=== PATIENT | male | born 1945 | race Caucasian/White ===

== ENCOUNTER 2019-04-07 09:57 | Inpatient (IN) | payer OTHER ==
[~2019-04-07] VITALS: Ht 157.5 cm; Wt 94.8 kg
[2019-04-07 10:07] VITALS: BP 170/87
[2019-04-07 10:17] LABS: URINE BILIRUBIN NEGATIVE (Negative); URINE BLOOD NEGATIVE (Negative); URINE CLARITY CLEAR; URINE COLOR YELLOW; URINE GLUCOSE-RANDOM NEGATIVE (Negative); URINE KETONES NEGATIVE (Negative); URINE LEUKOCYTES-REFLEX NEGATIVE (Negative); URINE NITRITE-REFLEX NEGATIVE (Negative); URINE PROTEIN 1+ (Negative); URINE SPECIFIC GRAVITY 1.025 (1.005-1.030); URINE UROBILINOGEN 0.2 E.U./dl (0.2-1.0)
[2019-04-07 10:23] LABS: ABSOLUTE BASOPHILS 0.1 thou/uL (0.0-0.2); ABSOLUTE EOSINOPHILS 0.5 thou/uL (0.0-0.7); ABSOLUTE LYMPHOCYTES 2.1 thou/uL (0.8-5.3); ABSOLUTE MONOCYTES 0.6 thou/uL (0.0-1.2); ABSOLUTE NEUTROPHILS 4.3 thou/uL (1.6-8.1); BASOPHILS 0.9 %; EOSINOPHILS 6.8 %; HEMOGLOBIN 14.9 gm/dL (14.0-18.0); LYMPHOCYTES 27.8 %; MCH 30.1 pg (26.0-34.0); MCHC 33.8 g/dL (28.0-37.0); MCV 89.1 fL (80.0-100.0); MONOCYTES 7.4 %; NUCLEATED RBCS 0 /100WBC; PLATELET COUNT* 221 thou/uL (150-400); POLYS 57.1 %; RBC 4.93 mil/uL (4.50-6.00); RDW-CV 14.9 % (10.5-14.5); WBC 7.6 thou/uL (4.0-11.0)
[2019-04-07 10:24] LABS: AMP/METHAMP Negative (Negative); BARBITURATES Negative (Negative); BENZODIAZEPINES Negative (Negative); COCAINE Negative (Negative); METHADONE Negative (Negative); OPIATES Negative (Negative); PCP Negative (Negative); THC Negative (Negative)
[2019-04-07 10:34] LABS: ANION GAP 10 mmol/L (7-16); BUN 14 mg/dL (7-18); CALCIUM 9.3 mg/dL (8.5-10.1); CHLORIDE 100 mmol/L (98-107); CO2 28 mmol/L (21-32); GLUCOSE 130 mg/dL (70-99); POTASSIUM 3.7 mmol/L (3.5-5.1); SODIUM 138 mmol/L (136-145)
[2019-04-07 10:35] LABS: APTT 25.9 Seconds (25.0-31.3); INR 1.2; PROTIME 12.6 Seconds (9.20-11.50)
--- NOTE | 2019-04-07 10:35 | NUR ---
PT IS FROM OUT OF [facility], [facility] PT STATES HE IS WORKING ON GETTING A LIST OF HIS HOME MEDICATIONS FOR OUR RECORDS AT THIS TIME.
[2019-04-07] MEDS ORDERED: CALCIUM 600 +1 EAC1 PO (10:38)
[2019-04-07] MEDS ORDERED: METHADONE HCL 110 M1 PO (10:38)
[2019-04-07] MEDS ORDERED: AMITRIPTYLINE H25 M2 PO (10:38)
[2019-04-07] MEDS ORDERED: COZAAR 25 MG TA25 M1 PO (10:38)
[2019-04-07] MEDS ORDERED: ROSUVASTATIN CA10 MG PO (10:39)
[2019-04-07] MEDS ORDERED: METFORMIN HCL500 MG PO (10:39)
[2019-04-07] MEDS ORDERED: DULCOLAX5 MG PO (10:39)
[2019-04-07] MEDS ORDERED: ASPIR 8181 MG PO (10:40)
[2019-04-07] MEDS ORDERED: AMLODIPINE BESY10 MG PO (10:40)
[2019-04-07] MEDS ORDERED: ATENOLOL 100MG100 MG PO (10:40)
[2019-04-07] MEDS ORDERED: BENADRYL25 MG PO (10:41)
[2019-04-07] MEDS ORDERED: TOLTERODINE (10:41)
[2019-04-07] MEDS ORDERED: NEURONTIN300 MG PO (10:42)
[2019-04-07 10:46] LABS: ALBUMIN 4.2 g/dL (3.4-5.0); ALKALINE PHOSPHATASE 48 U/L (46-116); NT-PRO BRAIN NAT PEPTIDE 74 pg/mL (<300); SGOT 28 U/L (15-37); SGPT 50 U/L (30-65); TOTAL BILIRUBIN 0.5 mg/dL (<0.1-1.0); TOTAL PROTEIN 7.7 g/dL (6.4-8.2); TROPONIN-I LEVEL <0.06 ng/mL (<0.06)
[2019-04-07 15:13] VITALS: BP 121/53
--- NOTE | 2019-04-07 15:22 | EKG ---
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1945 Requested By: Yadi Bryan Order Number: [id number] MD: Kaveh Nova Measurements Intervals [place] Rate: 69 P: 29 PA: 203 QRS: -6 QRSD: 111 T: 71 QT: 410 QTc: 440 Interpretive Statements Sinus rhythm Minimal ST elevation, anterolateral leads Baseline wander in lead(s) V1 No previous ECG available for comparison Electronically Signed On 04-07-2019 15:22:01 CDT by Kaveh Nova [email or web address] <ELECTRONICALLY SIGNED> By: Kaveh Nova MD, [facility] 04/07/19 1522 1110 1110 Kaveh Nova MD, [facility] /EPI
[2019-04-07 16:00] VITALS: BP 134/54
[2019-04-07 20:00] VITALS: BP 121/44
[2019-04-07] MEDS ORDERED: LANTUS100 UNIT/M SUBQ (21:04)
[2019-04-07] MEDS ORDERED: NOVOLOG100 UNIT/1 SUBQ (21:04)
[2019-04-07] MEDS ORDERED: PERCOCET PO (22:05)
[2019-04-08] VITALS (7 sets, daily range): BP systolic 115–144; BP diastolic 45–59
[2019-04-08 05:14] LABS: ALBUMIN 3.6 g/dL (3.4-5.0); ALKALINE PHOSPHATASE 42 U/L (46-116); ANION GAP 8 mmol/L (7-16); BUN 15 mg/dL (7-18); CALCIUM 9.3 mg/dL (8.5-10.1); CHLORIDE 103 mmol/L (98-107); CHOLESTEROL 99 mg/dL (<200); CO2 28 mmol/L (21-32); GLUCOSE 118 mg/dL (70-99); HDL CHOLESTEROL 43 mg/dL (>40); LDL CHOLESTEROL 40 mg/dL (<100); SGOT 29 U/L (15-37); SGPT 43 U/L (30-65); SODIUM 139 mmol/L (136-145); TC:HDL 2.3 Ratio (Not establshd); TOTAL BILIRUBIN 0.4 mg/dL (<0.1-1.0); TOTAL PROTEIN 7.2 g/dL (6.4-8.2); TRIGLYCERIDE 84 mg/dL (<150); VLDL 17 mg/dL (<40)
[2019-04-08 05:15] LABS: SERUM ASSESSMENT CLEAR
--- NOTE | 2019-04-08 07:46 | NUR ---
ASSUMED PT CARE AT 1930. ASSESSMENT COMPLETED CHARTED. ABLE TO MAKE NEEDS KNOWN. UP AD MICHAEL IN ROOM, C/O BACK PAIN AT NIGHT AND GAVE PRN PAIN MEDICATION. PT RESTING IN BED AT THIS TIME. PUT PT ON 2L OF O2 FOR DECREASED O2 SATS WHILE SLEEPING. NO FURTHER C/O PAIN. NO C/O SOA. STARTED IV FLUIDS PER P.O. WILL CONTINUE TO MONITOR.
--- NOTE | 2019-04-08 13:29 | 2DMMODE ---
[place] [address] 2 D/M-MODE ECHOCARDIOGRAM Name: ANNETTE CARRILLO JR Room: [facility]#: [id number] Admission: 04/07/19 Attend Phys: Martin Carl Discharge: Date of : 43 Date of Service: 04/08/19 1329 Report #: [id number] THIS REPORT FOR: //name// APPROVED REPORT Study performed: 04/08/2019 10:58:20 EXAM: Comprehensive 2D, Doppler, and color-flow Echocardiogram Patient Location: In-Patient Room #: [facility] Status: routine BSA: 1.87 HR: 58 bpm BP: 129/57 mmHg Rhythm: NSR Other Information Study Quality: Good Indications CVA/TIA Echo Enhancing Agent Indication: Rule out Shunt Agent(s) / Amount(s) Used: Agitated Saline 10 cc 2D Dimensions IVSd: 13.60 (7-11mm) LVOT Diam: 19.41 (18-24mm) LVDd: 47.27 mm PWd: 14.02 (7-11mm) Ascending Ao: 30.48 (22-36mm) LVDs: 25.15 (25-40mm) Aortic Root: 32.45 mm Volumes Left Atrial Volume (Systole) LA ESV Index: 24.00 mL/m2 Aortic Valve AoV Peak Kendrick.: 1.27 m/s AO Peak Gr.: 6.46 mmHg LVOT Max P.86 mmHg AO Mean Gr.: 3.30 mmHg LVOT Mean P.07 mmHg LVOT Max V: 1.10 m/s AO V2 VTI: 25.78 cm LVOT Mean V: 0.65 m/s RENETTA (VTI): 2.95 cm2 LVOT V1 VTI: 25.72 [place] [address] 2 D/M-MODE ECHOCARDIOGRAM Name: ANNETTE CARRILLO JR Room: [address] IN ..#: [id number] Admission: 04/07/19 Attend Phys: Martin Carl Discharge: Date of : 43 Date of Service: 04/08/19 1329 Report #: [id number] Mitral Valve E/A Ratio: 1.04 MV Decel. Time: 207.19 ms MV E Max Kendrick.: 0.92 m/s MV PHT: 60.09 ms MVA (PHT): 3.66 cm2 TDI E/Lateral E': 11.50 E/Medial E': 10.22 Medial E' Kendrick.: 0.09 m/s Lateral E' Kendrick.: 0.08 m/s Pulmonary Valve PV Peak Kendrick.: 0.97 m/s PV Peak Gr.: 3.73 mmHg Tricuspid Valve RAP Estimate: 5.00 mmHg TR Peak Gr.: 33.85 mmHg RVSP: 38.00 mmHg PA Pressure: 38.00 mmHg Left Ventricle The left ventricle is normal size. There is normal LV segmental wall motion. Mild concentric left ventricular hypertrophy. Left ventricular systolic function is normal. LVEF is 60-65%. Transmitral Doppler flow pattern suggests impaired LV relaxation. Right Ventricle The right ventricle is normal size. The right ventricular systolic function is normal. Atria Left atrium is mildly dilated. Interatrial septum is intact without evidence of ASD or PFO. Right atrium is mildly dilated. Aortic Valve The aortic valve is normal in structure. No aortic regurgitation is present. There is no aortic valvular stenosis. Mitral Valve The mitral valve is normal in structure. Trace mitral regurgitation. No evidence of mitral valve stenosis. Tricuspid Valve The tricuspid valve is normal in structure. Mild tricuspid regurgitation. The RVSP is 35-[place] [address] 2 D/M-MODE ECHOCARDIOGRAM Name: ANNETTE CARRILLO JR Room: [address] IN ..#: [id number] Admission: 04/07/19 Attend Phys: Martin Carl Discharge: Date of : 43 Date of Service: 04/08/19 1329 Report #: [id number] Pulmonic Valve The pulmonary valve is normal in structure. There is no pulmonic valvular regurgitation. Great Vessels The aortic root is normal in size. The inferior vena cava is not well visualized. Pericardium There is no pericardial effusion. <Conclusion> The left ventricle is normal size. Mild concentric left ventricular hypertrophy. Left ventricular systolic function is normal. LVEF is 60-65%. Transmitral Doppler flow pattern suggests impaired LV relaxation. There is normal LV segmental wall motion. Left atrium is mildly dilated. Right atrium is mildly dilated. Interatrial septum is intact without evidence of ASD or PFO. Mild tricuspid regurgitation. The RVSP is 35-40 mmHg. <ELECTRONICALLY SIGNED> By: Mahamed Blank MD, FACC 04/08/19 1329 28 28 Mahamed Blank MD, FACC /INF
--- NOTE | 2019-04-08 14:06 | NUR ---
Pt is A&O. Resides in [place] with his , Pt is here on vacation visiting his brother. Pt uses a walker for mobility. Pt states that he is suppose to fly back to [place] tomorrow, Pt's flight leaves at 3pm. Update nurse, Pt to have an overnight Ox tonight and probable dc tomorrow. No hx of HH or SNF. Following.
--- NOTE | 2019-04-08 18:22 | NUR ---
VSS, ASSUMED CARE IN THE AM, ASSESSMENT PERFORMED AND CHARTED, FALL PRECATIONS IN PLACE AND CALL LIGHT IN REACH, PT IS SR ON THE MONITOR, PT STATES HE HAS CHRONIC BACK PAIN, PT IS UP AD MICHAEL AND USES A WALKER AT TIMES, HE IS ON 2L NC, PT GOAL IS TO HAVE SLEEP STUDY TONIGHT AND D/C TOMORROW IN THE AM, WILL FOLLOW WITH PLAN OF CARE.
[2019-04-09 03:06] LABS: GLYCOHEMOGLOBIN (HGB A1C) 7.3 % (4.8-5.6)
[2019-04-09 04:45] VITALS: BP 143/51
--- NOTE | 2019-04-09 04:48 | NUR ---
PATIENT PROGRESSING TOWARDS GOALS: VSS ON ROOM AIR. PATIENT HAD OVERNIGHT PULSE OXIMETRY STUDY. ANTICIPATING DISCHARGE ONCE RESULTS ARE AVAILABLE FOR STUDY. PATIENT DENIES PAIN AND DISCOMFORT. UP INDEPENDENTLY WITH STEADY GAIT. CALL LIGHT WITHIN REACH
--- NOTE | 2019-04-09 10:15 | NUR ---
TELECASTING ENGINEER INFORMED THAT THE PATIENT WOULD NEED TO BE RETESTED FOR HOME OXYGEN. R.T. INFORMS THAT THE PATIENT NO LONGER QUALIFIES FOR OXYGEN WITH ACTIVITY. PATIENT'S SAT'S 94% WITH ACTIVITY. NURSING INFORMED. NO OTHER NEEDS IDENTIFIED. CM WILL REMAIN AVAILABLE TO ASSIST AND FOLLOW NEEDED.
[2019-04-09 10:50] VITALS: BP 143/51
--- NOTE | 2019-04-09 11:39 | NUR ---
VSS, ASSUMED CARE IN THE AM, ASSESSMENT PERFORMED AND CHARTED, FALL PRECAUTIONS IN PLACE AND CALL LIGHT IN REACH, PT IS A&O4 AND UP AD MICHAEL AND HAS CHROINIC BACK PAIN, PT GOAL IS TO IMPROVE BREATHING AND DISCHARGE, PT HAS COMPLETED SLEEP STUDY AND RT WALK, AT THIS TIME DISCHAGE ORDERS HAVE BEEN COMPLETED, I PROVITED EDU AND D/C PAPERS TO PATIENT, TOOK OUT IV AND TELE MONITOR, PT WAS TAKEN OUT VIA WHEEL CHAIR TO CAR BY STAFF WITH FAMILY, HOURLY ROUNDS COMPLETED.
== END 2019-04-09 11:50 | disposition home or self-care (01) | DRG 149 ==
LOC: M.ERS 09:57 → M.TBA-ER 12:54 → M.2W 12:54
PROVIDERS: Physician Assistant; ADMIT Internal Medicine
DX: H81.10 Benign paroxysmal vertigo, unspecified ear (principal); F41.9 Anxiety disorder, unspecified; G89.29 Other chronic pain; M54.2 Cervicalgia; M54.9 Dorsalgia, unspecified; I10 Essential (primary) hypertension; G43.809 Other migraine, not intractable, without status migrainosus; E11.40 Type 2 diabetes mellitus with diabetic neuropathy, unspecified; G47.33 Obstructive sleep apnea (adult) (pediatric); J44.9 Chronic obstructive pulmonary disease, unspecified; R09.02 Hypoxemia; Z79.82 Long term (current) use of aspirin; Z87.891 Personal history of nicotine dependence; Z82.3 Family history of stroke; Z85.46 Personal history of malignant neoplasm of prostate; Z79.899 Other long term (current) drug therapy